=== PATIENT | female | born 1995 | race Two or more races ===

== ENCOUNTER 2017-03-25 17:48 | Emergency (ER) | payer SELFPAY ==
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
[2017-03-25 18:12] VITALS: BP 121/96; RESP 16; TEMP 98.2
[2017-03-25] MEDS ORDERED: CHLORDIAZEPOXIDE 25MG PREPK#6 BTL TAKEHOME ONE (18:15)
[2017-03-25 18:22] VITALS: PULSE 98; O2SAT 97
== END 2017-03-25 18:22 | disposition home or self-care (01) ==
LOC: EDBD 17:48
DX: F10.920 Alcohol use, unspecified with intoxication, uncomplicated (principal)

== ENCOUNTER 2017-03-25 22:33 | Emergency (ER) | payer SELFPAY ==
[2017-03-25] MEDS ORDERED: NS 1,000 ML IV ONE (22:38)
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
[2017-03-25 23:16] LABS: ETHANOL SERUM 153 mg/dL (0-10)
--- NOTE | 2017-03-25 23:32 | CPEKG ---
Heart Rate: 94 RR Interval: 638 QRSD Interval: 84 QT Interval: 344 QTC Interval: 431 QRS [place]: 83 T Wave [place]: 14 EKG Severity - ABNORMAL ECG - EKG Impression: SINUS RHYTHM EKG Impression: BORDERLINE T ABNORMALITIES, ANTERIOR LEADS Electronically Signed By: Miguel Silva 27-Mar-2017 08:11:45
[2017-03-25 23:39] VITALS: BP 108/82; PULSE 105; RESP 16; TEMP 97.5; O2SAT 100
== END 2017-03-25 23:59 | disposition home or self-care (01) ==
LOC: EDUNIT#
DX: F10.920 Alcohol use, unspecified with intoxication, uncomplicated (principal); R55 Syncope and collapse; W18.39XA Other fall on same level, initial encounter; Y99.8 Other external cause status
CPT/HCPCS: G0480

== ENCOUNTER 2017-04-10 02:32 | Emergency (ER) | payer SELFPAY ==
[2017-04-10 02:38] VITALS: BP 127/95; PULSE 74; RESP 16; TEMP 97.9; O2SAT 96
--- NOTE | 2017-04-10 02:38 | EDPHY ---
H & P HPI/ROS: HPI CHIEF COMPLAINT: Alcohol Intoxication HISTORY OF PRESENT ILLNESS: This patient is a 21-year-old female, here in the emergency room by ambulance from her dorm room for acute alcohol intoxication. Patient reports that she drank a lot of alcohol this evening. She vomited. Was unable to ambulate. Brought to emergency evaluation. No focal complaints. This is this patient's 3rd ER visit for acute alcohol intoxication. No reported trauma. Past Medical History: Denies medical history Past Surgical History: Denies surgical history Social History: [employer] student, admits to alcohol this evening. Denies illicit drugs or tobacco. Family History: Noncontributory ROS REVIEW OF SYSTEMS: A comprehensive 10 point review of systems is otherwise negative aside from elements mentioned in the history of present illness. Exam Constitutional Intoxicated, triage nursing summary reviewed, vital signs reviewed, Sleepy, smells of alcohol Eyes normal conjunctivae and sclera, horizontal beating nystagmus consistent acute alcohol intoxication, otherwise pupils equal and react to light HENT normal inspection, atraumatic, moist mucus membranes, no epistaxis, neck supple/ no meningismus, no raccoon eyes. Respiratory clear to auscultation bilaterally, normal breath sounds, no respiratory distress, no wheezing. Cardiovascular rate normal, regular rhythm, no murmur, no edema, distal pulses normal. Gastrointestinal soft, non-tender, no rebound, no guarding, normal bowel sounds, no distension, no pulsatile mass. Genitourinary no CVA tenderness. Musculoskeletal no midline vertebral tenderness, full range of motion, no calf swelling, no tenderness of extremities, no meningismus, good pulses, neurovascularly intact. Skin pink, warm, & dry, no rash, skin atraumatic. Neurologic sleepy, intoxicated with alcohol,, alert and oriented x 3, AAOx3, moves all 4 extremities equally, motor intact, sensory intact, CN II-XII intact , , normal vision, normal speech. Psychiatric normal mood/affect. Heme/Lymph/Immune no lymphadenopathy. Differential Diagnosis: Includes but is not limited to in a particular order acute alcohol intoxication, alcohol abuse, dehydration, electrolyte abnormality , nausea vomiting from acute alcohol intoxication Medical Decision Making: Plan for this patient monitor for worsening condition. Ambulate to see if she has steady gait. She may be able to go to detox. Re-evaluation: Breath ETOH: Breath alcohol 264. 0314: This patient ambulated well throughout the emergency room. Stable gait. Clinically sober to go to the [facility]. I did discuss with this patient that I am concerned this is her 3rd ER visit for acute alcohol intoxication. I highly recommend that she gets help in terms of alcohol. She was agreeable with this. Source: Patient, EMS - Medical/Surgical History Hx Asthma: No Hx Chronic Respiratory Disease: No Hx Diabetes: No Hx Cardiac Disease: No Hx Renal Disease: No Hx Cirrhosis: No Hx Alcoholism: No Hx HIV/AIDS: No Hx Splenectomy or Spleen Trauma: No Other PMH: ALS - Social History Smoking Status: Unknown if ever smoked Constitutional: Initial Vital Signs Temperature (C) 36.6 C 04/10/17 02:35 Heart Rate 74 04/10/17 02:35 Respiratory Rate 16 04/10/17 02:35 Blood Pressure 127/95 H 04/10/17 02:35 O2 Sat (%) 96 04/10/17 02:35 O2 Delivery Mode Room Air Allergies/Adverse Reactions: No Known Allergies Allergy (Unverified 04/10/17 02:34) Home Medications: Medication Instructions Recorded CLONAZEPAM 03/25/17 PARoxetine CR 03/25/17 Departure - Departure Disposition: Home, Routine, Self-Care Clinical Impression: Alcoholic intoxication Qualifiers: Complication of substance-induced condition: uncomplicated Qualified Code(s): F10.920 - Alcohol use, unspecified with intoxication, uncomplicated Condition: Good Instructions: Alcohol Intoxication (ED), Abuse of Alcohol (ED) Additional Instructions: 1. Please stop abusing alcohol. Referrals: Patient,NotPresent [Primary Care Provider] - As per Instructions
== END 2017-04-10 03:10 | disposition home or self-care (01) ==
LOC: EDUNIT#
DX: F10.920 Alcohol use, unspecified with intoxication, uncomplicated (principal)

== ENCOUNTER 2017-04-12 22:13 | Emergency (ER) | payer BC ==
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
[2017-04-12 22:52] LABS: ETHANOL SERUM 460 mg/dL (0-10)
[2017-04-13] MEDS ORDERED: ONDANSETRON 4 MG/2 ML VIAL ONE (00:44)
[2017-04-13 00:48] VITALS: PULSE 92
[2017-04-13] MEDS ORDERED: ONDANSETRON 4 MG/2 ML VIAL IVP ONE (00:48)
[2017-04-13 04:19] VITALS: BP 96/66; RESP 18; TEMP 98.2; O2SAT 95
== END 2017-04-13 04:20 | disposition home or self-care (01) ==
DX: F10.129 Alcohol abuse with intoxication, unspecified (principal); R41.82 Altered mental status, unspecified
CPT/HCPCS: 96374; G0480; J2405